=== PATIENT | female | born 1955 | race Caucasian/White ===

== ENCOUNTER 2021-11-30 19:20 | Emergency (ER) | payer OTHER ==
[2021-11-30 19:30] VITALS: BP 118/64; PULSE 76; TEMP 98.1; BMI 23.8
[2021-11-30] MEDS ORDERED: GABAPENTIN 100 MG CAPSULE PO ONE (20:08)
[2021-11-30] MEDS ORDERED: GABAPENTIN 100 MG CAPSULE ONE (20:15)
[2021-11-30] MEDS ORDERED: LIDOCAINE 5% TOPICAL PATCH TP ONE (21:28)
[2021-11-30] MEDS ORDERED: LIDOCAINE 5% TOPICAL PATCH ONE (21:31)
[2021-12-01] MEDS ORDERED: LIDOCAINE PATCH REMOVAL MC SCH (09:00)
== END 2021-11-30 21:45 | disposition home or self-care (01) ==
LOC: JER 19:20
DX: M25.551 Pain in right hip (principal)
CPT/HCPCS: 72170-TC-FY; 73521-TC-FY; 99284-25